=== PATIENT | female | born 1990 | race Caucasian/White ===

== ENCOUNTER 2018-01-20 12:41 | Emergency (ER) | payer MEDICAID ==
[~2018-01-20] VITALS: Ht 162.6 cm; Wt 88.0 kg
[2018-01-20] MEDS ORDERED: ibuprofen tablet 400 MG TABLET PO ONE (13:30)
[2018-01-20] MEDS ORDERED: ondansetron/PF 4mg/2ml inj IV ONE (13:30)
[2018-01-20] MEDS ORDERED: normal saline 1000ML IV soln IVB ONE (13:30)
[2018-01-20] MEDS ORDERED: morphine 4 MG/ML inj SYRINge IV ONE (13:30)
[2018-01-20 14:12] LABS: BASOPHILS % (AUTO) 0.1 % (0-1); EOSINOPHILS % (AUTO) 0 % (0-6); HEMOGLOBIN 12.9 g/dl (12.0-16.0); LYMPHOCYTES # (AUTO) 0.6 X10'3 (1.1-4.8); MEAN CORPUSCULAR HEMOGLOBIN 32.2 PG (27.0-31.0); MEAN CORPUSCULAR HGB CONC 34.9 % (33.0-36.5); MEAN CORPUSCULAR VOLUME 92.2 FL (78-98); MEAN PLATELET VOLUME 7.8 FL (7.4-10.4); MONOCYTES # (AUTO) 0.5 X10'3 (0-0.9); MONOCYTES % (AUTO) 3.9 % (2-12); NEUTROPHILS # (AUTO) 11.4 X10'3 (1.8-7.7); PLATELET COUNT 196 X10'3 (140-440); RED BLOOD COUNT 4.02 X10'6 (4.20-5.60); RED CELL DISTRIBUTION WIDTH 13.3 % (11.5-14.5); WHITE BLOOD COUNT 12.5 X10'3 (4.5-11.0)
[2018-01-20 14:20] LABS: CLARITY,URINE Cloudy (Clear); COLOR,URINE Yellow (Yellow); GLUCOSE, URINE Negative (Neg); KETONES,URINE 15 mg/dl (Neg); LEUKOCYTE ESTERASE ,URINE Negative (Neg); NITRITES, URINE Negative (Neg); OCCULT BLOOD,URINE Negative (Neg); PH,URINE >=9.0 (4.8-8.0); PROTEIN,URINE Negative (Neg)
[2018-01-20 14:22] LABS: UA COLLECTION TYPE CLN CATCH MIDSTREAM
[2018-01-20 14:29] LABS: BACTERIA,URINE NONE SEEN /HPF (Neg); RBC,URINE NONE SEEN /HPF (0-2); SQUAMOUS EPITHELIAL CELL,UR FEW /LPF (FEW); WBC,URINE NONE SEEN /HPF (0-4)
[2018-01-20 14:37] LABS: ALANINE AMINOTRANSFERASE 41 U/L (12-78); ALBUMIN 4.1 G/DL (3.4-5.0); ALBUMIN/GLOBULIN RATIO 1.2 (1.1-1.5); ALKALINE PHOSPHATASE 53 IU/L (46-116); ANION GAP 13 (8-16); ASPARTATE AMINO TRANSFERASE 21 U/L (10-37); BILIRUBIN,TOTAL 1.1 MG/DL (0.1-1.0); BLOOD UREA NITROGEN 11 MG/DL (7-18); BUN/CREATININE RATIO 15.7 (6.6-38.0); CALCIUM 8.8 MG/DL (8.5-10.1); CHLORIDE 103 MMOL/L (99-107); GLUCOSE 96 MG/DL (70-104); POTASSIUM 3.7 MMOL/L (3.5-5.1); SODIUM 140 MMOL/L (135-145); TOTAL CARBON DIOXIDE 23.8 MMOL/L (24-32); TOTAL PROTEIN 7.4 G/DL (6.4-8.2); eGFR > 90 ML/MIN
[2018-01-20 14:44] LABS: TOTAL CELLS COUNTED 100
[2018-01-20 14:45] LABS: PLATELET ESTIMATE NORMAL
[2018-01-20 14:57] LABS: HCG SERUM QL NEGATIVE
[2018-01-20] MEDS ORDERED: LIDOcaine 1% 30ml preserv. free vial IJ ONE (16:00)
[2018-01-20] MEDS ORDERED: LIDOcaine 1% (10mg/ml) 2ml vial ONE (16:02)
[2018-01-20] MEDS ORDERED: dexamethasone 4mg/ml inj IV SCH (16:55)
[2018-01-20] MEDS ORDERED: vancomycin/NS 1 GM ADD-VANTAGE 250 ML IV ONE (16:55)
[2018-01-20] MEDS ORDERED: CefTRIAXone/D5W-Rocephin 1gm 50 ML IV ONE (16:55)
[2018-01-20] MEDS ORDERED: cefTRIAXone 1g/NS 100ml IVPB 100 ML IV ONE (17:10)
[2018-01-20] MEDS ORDERED: LIDOcaine 1%/PF (10mg/ml) 5ml vial ONE (17:48)
[2018-01-20 18:55] LABS: APPEARANCE,CSF CLEAR; CSF SUPERNATANT COLOR COLORLESS
[2018-01-20 18:56] LABS: CSF RBC 0 /CU MM (0); CSF VOLUME 7 ML; CSF WBC CT 0 /CU MM (0-5); TUBE# COUNTED 2
[2018-01-20 18:58] LABS: APPEARANCE,CSF CLEAR; CSF SUPERNATANT COLOR COLORLESS; CSF VOLUME 7 ML; TUBE# COUNTED 4
[2018-01-20 18:59] LABS: CSF RBC 0 /CU MM (0); CSF WBC CT 0 /CU MM (0-5)
[2018-01-20 19:09] LABS: GLUCOSE,CSF 61 MG/DL (40-75); TOTAL PROTEIN,CSF 31 MG/DL (15-45)
[2018-01-20 19:54] VITALS: BP 103/65
== END 2018-01-20 19:56 | disposition home or self-care (01) ==
LOC: ER 12:42
DX: R50.9 Fever, unspecified (principal); Z88.1 Allergy status to other antibiotic agents
CPT/HCPCS: 36415; 62270; 71046; 77003; 80053; 81001; 82945; 83605; 84157; 84703; 85025; 87015; 87040; 87070; 87077; 87186; 87502; 87503; 89051; 96361; 96365; 96375; 99285; J0696; J1100; J2001; J2270; J2405; J3490; J7030; J3370